=== PATIENT | male | born 1980 | race African-American/Black ===

== ENCOUNTER 2022-12-11 08:44 | Inpatient (IN) | payer OTHER ==
[~2022-12-11] VITALS: Ht 182.9 cm; Wt 76.3 kg
[2022-12-11 09:01] VITALS: BP 138/89; PULSE 109; RESP 18; TEMP 97.8; O2SAT 99
[2022-12-11] MEDS ORDERED: NACL 0.9% 1,000 ML IV SCH (09:30)
[2022-12-11] MEDS ORDERED: cefTRIAXone 1,000 MG in DEXT 5% MINI-BAG PLUS 50 ML IV ONE (09:30)
[2022-12-11 10:37] LABS: BASOPHILS % (AUTO) 0.3 % (0.0-2.0); HEMATOCRIT 47.9 % (36-52); HEMOGLOBIN 15.7 g/dL (12.0-18.0); LYMPHOCYTES # (AUTO) 0.8 K/uL (2.0-11.5); LYMPHOCYTES % (AUTO) 5.8 % (20.5-51.1); MEAN CORPUSCULAR HEMOGLOBIN 31 pg (27-31); MEAN CORPUSCULAR HGB CONC 33 g/dL (33-37); MEAN CORPUSCULAR VOLUME 95.2 fL (80-94); MONOCYTES # (AUTO) 0.5 K/uL (0.8-1.0); MONOCYTES % (AUTO) 3.9 % (1.7-9.3); NEUTROPHILS # (AUTO) 11.8 K/uL (1.8-7.7); PLATELET COUNT (AUTO) 208 K/uL (140-450); RED BLOOD CELL COUNT(AUTO) 5.03 MIL/uL (4.20-6.10); WHITE BLOOD COUNT (AUTO) 13.1 K/uL (4.8-10.8)
[2022-12-11 10:40] LABS: APPEARANCE,URINE CLEAR (CLEAR); BILIRUBIN,URINE NEGATIVE (NEGATIVE); BLOOD, URINE TRACE-I (NEGATIVE); COLOR,URINE YELLOW (YELLOW); LEUKOCYTE ESTERASE ,URINE NEGATIVE (NEGATIVE); NITRITE, URINE NEGATIVE (NEGATIVE); PH,URINE 5.5 (5.0-9.0); PROTEIN,URINE 1+ (NEGATIVE); UGLUCOSE 2+ (NEGATIVE); UROBILINOGEN,URINE 0.2 EU/dL (0.2 - 1)
[2022-12-11 10:48] LABS: ALBUMIN 4.3 g/dL (3.4-5.0); ANION GAP 30.9 (8-16); CALCIUM 8.1 mg/dL (8.5-10.1); CARBON DIOXIDE 9.2 mmol/L (21-32); CREATININE 1.4 mg/dL (0.6-1.3); POTASSIUM 5.1 mmol/L (3.5-5.1); TOTAL BILIRUBIN 0.5 mg/dL (0.0-1.0); TOTAL PROTEIN, SERUM 7.4 g/dL (6.4-8.2)
[2022-12-11 10:50] LABS: BACTERIA,URINE 0-2 /HPF (None Seen); RBC,URINE 0-5 /HPF (0-5); WBC,URINE 0-5 /HPF (0-5)
[2022-12-11 10:51] LABS: SQUAMOUS EPITHELIAL CELL,UR 20-50 /LPF (0-3 (FEW))
[2022-12-11 10:56] LABS: LACTIC ACID 1.2 mmol/L (0.4-2.0)
[2022-12-11] MEDS ORDERED: NACL 0.9% 1,000 ML IV ONE (11:25)
[2022-12-11] MEDS ORDERED: INSULIN REGULAR, HUMAN 100 UNIT/ML VIAL IVP ONE (11:50)
[2022-12-11] MEDS ORDERED: INSU300S SC (14:25)
[2022-12-11] MEDS ORDERED: DEXTROSE 50% 50 ML SYR IVP PRN ×2 (16:25→17:55)
[2022-12-11] MEDS ORDERED: BLOOD GLUCOSE MONITORING 1 DEV DEV FS SCH ×2 (16:25→17:55)
[2022-12-11] MEDS ORDERED: INSULIN REGULAR, HUMAN 100 UNIT in NACL 0.9% 100 ML IV ONE ×2 (16:25)
[2022-12-11 17:24] VITALS: PULSE 97
[2022-12-11 17:54] VITALS: PULSE 96; RESP 18; O2SAT 98
[2022-12-11] MEDS ORDERED: INSULIN REGULAR, HUMAN 100 UNIT in NACL 0.9% 100 ML IV SCH ×2 (17:55)
[2022-12-11 18:00] VITALS: BP 133/90; PULSE 97; RESP 18; O2SAT 99
[2022-12-11] MEDS: BLOOD GLUCOSE MONITORING 1 DEV DEV FS SCH ×5 (19:00→23:05)
[2022-12-11] MEDS: DEXT 5% / NACL 0.9% 500 ML IV SCH ×3 (19:00→22:05)
[2022-12-11] MEDS: NACL 0.9% 1,000 ML IV SCH ×3 (19:00→22:05)
[2022-12-11 20:00] VITALS: BP 121/75; PULSE 90; RESP 19; TEMP 99; O2SAT 98
[2022-12-11 20:12] LABS: ANION GAP 24.4 (8-16); CALCIUM 7.9 mg/dL (8.5-10.1); CARBON DIOXIDE 13.8 mmol/L (21-32); CREATININE 1.3 mg/dL (0.6-1.3); POTASSIUM 4.2 mmol/L (3.5-5.1)
[2022-12-11 20:28] LABS: MAGNESIUM 1.6 mg/dL (1.8-2.4)
[2022-12-11] MEDS ORDERED: POTASSIUM CHLORIDE 10 MEQ TABER PO PRN (20:55)
[2022-12-11] MEDS ORDERED: MAG SULF 2000 MG/WATER PREMIX 25 ML IV PRN (20:55)
[2022-12-11 22:00] VITALS: BP 92/56; PULSE 82; RESP 18; O2SAT 96
[2022-12-12] VITALS (16 sets, daily range): BP systolic 90–134; BP diastolic 43–97; PULSE 73–98; RESP 12–20; TEMP 98.2–99; O2SAT 94–99
[2022-12-12] MEDS: BLOOD GLUCOSE MONITORING 1 DEV DEV FS SCH ×17 (00:10→21:48)
[2022-12-12 00:44] LABS: ANION GAP 15.6 (8-16); CALCIUM 7.5 mg/dL (8.5-10.1); CARBON DIOXIDE 17.2 mmol/L (21-32); CREATININE 1.2 mg/dL (0.6-1.3); POTASSIUM 3.8 mmol/L (3.5-5.1)
[2022-12-12 00:47] LABS: MAGNESIUM 1.7 mg/dL (1.8-2.4); PHOSPHORUS 1.4 mg/dL (2.5-4.9)
[2022-12-12] MEDS: DEXT 5% / NACL 0.9% 500 ML IV SCH ×3 (03:35→08:54)
[2022-12-12 04:54] LABS: ANION GAP 15.1 (8-16); CALCIUM 7.7 mg/dL (8.5-10.1); CARBON DIOXIDE 17.2 mmol/L (21-32); CREATININE 1.1 mg/dL (0.6-1.3); POTASSIUM 3.3 mmol/L (3.5-5.1)
[2022-12-12 04:58] LABS: MAGNESIUM 1.8 mg/dL (1.8-2.4); PHOSPHORUS 1.4 mg/dL (2.5-4.9)
[2022-12-12 08:06] LABS: ANION GAP 13.7 (8-16); CALCIUM 7.7 mg/dL (8.5-10.1); POTASSIUM 3.7 mmol/L (3.5-5.1)
[2022-12-12 08:16] LABS: MAGNESIUM 1.8 mg/dL (1.8-2.4); PHOSPHORUS 1.2 mg/dL (2.5-4.9)
[2022-12-12] MEDS ORDERED: INSULIN LANTUS 100 UNITS/ML 10 ML VIAL SUBQ SCH (08:47)
[2022-12-12] MEDS: NACL 0.9% 1,000 ML IV SCH (08:55)
[2022-12-12] MEDS: INSULIN LISPRO SLIDING SCALE 100 UNITS/ML VIAL SUBQ PRN ×2 (11:21→16:52)
[2022-12-12] MEDS ORDERED: BLOOD GLUCOSE MONITORING 1 DEV DEV FS SCH (16:30)
[2022-12-12] MEDS ORDERED: INSULIN LISPRO 100 UNITS/ML VIAL SUBQ ONE (19:05)
[2022-12-13] VITALS: BP 92/58; PULSE 68; PULSE 98; RESP 15; TEMP 98.4; O2SAT 95
[2022-12-13 04:00] VITALS: BP 105/58; PULSE 68; PULSE 69; RESP 19; TEMP 98.2; O2SAT 97
[2022-12-13] MEDS: INSULIN LISPRO SLIDING SCALE 100 UNITS/ML VIAL SUBQ PRN ×2 (07:53→11:48)
[2022-12-13] MEDS: BLOOD GLUCOSE MONITORING 1 DEV DEV FS SCH ×2 (07:54→11:45)
[2022-12-13 08:00] VITALS: BP 121/79; PULSE 93; PULSE 98; RESP 14; RESP 20; TEMP 97.7; O2SAT 96
[2022-12-13 08:39] LABS: BASOPHILS % (AUTO) 0.3 % (0.0-2.0); EOSINOPHILS # (AUTO) 0.1 K/uL (0-0.4); EOSINOPHILS % (AUTO) 1.2 % (0.0-4.0); HEMATOCRIT 43.9 % (36-52); LYMPHOCYTES % (AUTO) 17.2 % (20.5-51.1); MEAN CORPUSCULAR HEMOGLOBIN 32 pg (27-31); MEAN CORPUSCULAR HGB CONC 34 g/dL (33-37); MEAN CORPUSCULAR VOLUME 92.5 fL (80-94); MONOCYTES # (AUTO) 0.4 K/uL (0.8-1.0); MONOCYTES % (AUTO) 6.1 % (1.7-9.3); NEUTROPHILS # (AUTO) 4.6 K/uL (1.8-7.7); NEUTROPHILS % (AUTO) 75.2 % (42.2-75.2); PLATELET COUNT (AUTO) 191 K/uL (140-450); RED BLOOD CELL COUNT(AUTO) 4.75 MIL/uL (4.20-6.10); RED CELL DISTRIBUTION WIDTH 12.5 % (11.6-13.7); WHITE BLOOD COUNT (AUTO) 6.1 K/uL (4.8-10.8)
[2022-12-13 08:49] LABS: ALBUMIN 3.7 g/dL (3.4-5.0); ANION GAP 13.9 (8-16); CALCIUM 7.8 mg/dL (8.5-10.1); CARBON DIOXIDE 24.9 mmol/L (21-32); CREATININE 0.9 mg/dL (0.6-1.3); POTASSIUM 3.8 mmol/L (3.5-5.1); TOTAL BILIRUBIN 1.2 mg/dL (0.0-1.0); TOTAL PROTEIN, SERUM 6.5 g/dL (6.4-8.2)
[2022-12-13] MEDS ORDERED: INSULIN LANTUS 100 UNITS/ML 10 ML VIAL SUBQ SCH (10:00)
[2022-12-13 12:00] VITALS: BP 132/65; PULSE 92; PULSE 93; RESP 16; O2SAT 99
[2022-12-13] MEDS ORDERED: INSU300S SC (12:25)
[2022-12-13] MEDS ORDERED: HUMSLIDE SUBQ (12:26)
[2022-12-13 12:58] VITALS: BP 131/76; PULSE 87; RESP 16; TEMP 97.7
[2022-12-13 13:00] VITALS: BP 131/76; PULSE 88; RESP 12; O2SAT 98
== END 2022-12-13 13:05 | disposition home or self-care (01) | DRG 638 ==
LOC: MED 08:44 → MTU 15:08 → MIC 16:55
PROVIDERS: ADMIT Family Medicine; ATTEND Family Medicine
DX: E10.10 Type 1 diabetes mellitus with ketoacidosis without coma (principal); N17.9 Acute kidney failure, unspecified; Z79.4 Long term (current) use of insulin; Z79.899 Other long term (current) drug therapy
CPT/HCPCS: 36415; 71045; 80048; 80053; 81001; 82009; 82948; 83036; 83605; 83690; 83735; 83880; 84100; 84484; 85025; 87040; 87081; 87086; 93005; 96361; 96365; 96375; 99291; J1815; J3475